=== PATIENT | female | born 1950 | race Caucasian/White ===

== ENCOUNTER 2017-09-30 08:28 | Day surgery (SDC) | payer MEDICARE, OTHER ==
[~2017-09-30] VITALS: Ht 165.2 cm; Wt 102.0 kg
[2017-09-30] VITALS (11 sets, daily range): BP systolic 126–161; BP diastolic 65–86; PULSE 56–71; TEMP 97.7
[~2017-09-30 08:28] MED LIST: ACIPHEX20 MG PO; APRESOLINE 25MG25 MG PO; CARAFATE 1GM1 G PO; COLACE 100100 MG/CAP PO; COREG 25MG25 MG/TAB PO; KLOR-CON 1010 MEQ PO; MICARDIS HCT 251 TAB PO; NAPROSYN 2250 MG/TAB PO; NORCO 325 MG-7.1 TAB PO; PHENERGAN 25 TA25 MG PO; PRIL40 PO; PROZAC 20MG20 MG PO; SYNTHROID0.175 MG PO; ZOCOR 40MG40 MG PO; ZYRTEC 10MG10 MG PO
[2017-09-30 09:25] LABS: HEMATOCRIT 39.4 % (37.0-47.0); MEAN CELL VOLUME 91 fl (80.0-100.0); MEAN CORPUSCULAR HEMOGLOBIN 30 pg (27.0-31.0); MEAN CORPUSCULAR HGB CONC 33 g/dl (33.0-37.0); MEAN PLATELET VOLUME 11.7 fl (7.4-10.4); PLATELET COUNT 208 K/mm3 (130-400); RED BLOOD COUNT 4.32 M/mm3 (4.10-5.30); REDCELL DISTRIBUTION WIDTH-CV 12.7 % (11.5-14.5)
[2017-09-30] MEDS ORDERED: ASPIRIN E.C. 8181 MG PO (09:25)
[2017-09-30] MEDS ORDERED: ALEVE 220MG220 MG PO (09:25)
[2017-09-30 09:30] LABS: INR 1.2 (0.8-3.0); PROTHROMBIN TIME 14.4 SECONDS (9.7-12.8)
[2017-09-30 09:37] LABS: CALCIUM 9.2 mg/dL (8.4-10.2); CREATININE, serum 0.79 mg/dL (0.52-1.25); POTASSIUM 3.8 mmol/L (3.4-5.0)
== END 2017-09-30 16:00 | disposition home or self-care (01) ==
LOC: COL.CAR 08:28
PROVIDERS: Internal Medicine Cardiovascular Disease
DX: I27.20 Pulmonary hypertension, unspecified (principal); I25.10 Atherosclerotic heart disease of native coronary artery without angina pectoris; I34.0 Nonrheumatic mitral (valve) insufficiency; Z80.3 Family history of malignant neoplasm of breast; Z82.49 Family history of ischemic heart disease and other diseases of the circulatory system; I10 Essential (primary) hypertension; E78.5 Hyperlipidemia, unspecified
CPT/HCPCS: J2250; J3010; Q9967

== ENCOUNTER 2019-04-19 10:45 | Outpatient (RCR) | payer MEDICARE, OTHER ==
[~2019-04-19 10:45] MED LIST changes: +ALEVE 220MG220 MG PO; +ASPIRIN E.C. 8181 MG PO
== END 2019-06-03 11:01 | disposition home or self-care (01) ==
LOC: WSPT 10:45
DX: M48.07 Spinal stenosis, lumbosacral region (principal)

== ENCOUNTER 2019-08-29 08:45 | Outpatient (RCR) | payer MEDICARE, OTHER | END 2019-11-14 | disposition home or self-care (01) | LOC: WSPT | DX: M48.07 Spinal stenosis, lumbosacral region (principal) ==